=== PATIENT | female | born 1995 | race Caucasian/White ===

== ENCOUNTER 2018-02-10 05:02 | Day surgery (SDC) | payer BC ==
[~2018-02-10] VITALS: Ht 160 cm; Wt 61.7 kg
[2018-02-10] VITALS (9 sets, daily range): BP systolic 98–126; BP diastolic 62–83
[~2018-02-10 05:02] MED LIST: CELE-1 PO; DOCU-416 PO; NORG1TAB97 PO; OXYC-865 PO; ROSU20TA23 PO
[2018-02-10] MEDS ORDERED: ceFAZolin(*) 2GM/D5W 50ML 50 ML IVPB ONE (06:00)
[2018-02-10] MEDS ORDERED: LIDOCAINE/SOD BICARB 8.4% SYR ID ONE (06:00)
[2018-02-10] MEDS ORDERED: FAMOTIDINE 20 MG TAB PO ONE (06:00)
[2018-02-10] MEDS ORDERED: MIDAZOLAM 2 MG/2 ML VIAL IVP PRN (06:00)
[2018-02-10] MEDS ORDERED: NORMOSOL R SOLN(*) 1000 ML BAG 1,000 ML IV PRN (06:00)
[2018-02-10] MEDS ORDERED: ONDANSETRON 4 MG/2 ML VIAL ONE ×2 (06:01→11:05)
[2018-02-10] MEDS ORDERED: PROPOFOL EMUL(*) 10MG/ML 20 ML 20 ML ONE (06:01)
[2018-02-10] MEDS ORDERED: LIDOCAINE MPF 1% 5 ML VIAL ONE (06:01)
[2018-02-10] MEDS ORDERED: ROCURONIUM BROM 10 MG/ML 10 ML ONE (06:01)
[2018-02-10] MEDS ORDERED: METOCLOPRAMIDE 10 MG/2 ML SDV ONE (06:01)
[2018-02-10] MEDS ORDERED: DEXAMETHASONE SOD 4 MG/ML VIAL ONE (06:02)
[2018-02-10] MEDS ORDERED: fentaNYL CITR 100 MCG/2 ML AMP ONE ×2 (06:08→08:51)
[2018-02-10] MEDS ORDERED: SUGAMMADEX SOD 200 MG/2 ML SDV ONE (06:09)
[2018-02-10] MEDS ORDERED: ACETAMINOPHEN(*)1000 MG/100 ML 100 ML IVPB ONE (06:14)
[2018-02-10] MEDS ORDERED: BUPIVACAIN 0.25% INJ 50ML VIAL ONE (07:33)
[2018-02-10] MEDS ORDERED: KETOROLAC 30 MG/ML VIAL ONE (08:59)
[2018-02-10] MEDS ORDERED: LOR5/325 PO (09:23)
[2018-02-10] MEDS ORDERED: DIA5 PO (09:37)
[2018-02-10] MEDS ORDERED: DOCU240C84 PO (09:38)
--- NOTE | 2018-02-10 09:59 | RADIOLOGY IMAGING REPORT ---
[place] [facility] [place] NAME: Pauline Stewart : 1995 MR: [id number] V: [id number] EXAM DATE: ORDERING PHYSICIAN: ANEL CHIN TECHNOLOGIST: Location: [facility] [place] Patient: Pauline Stewart : 1995 Visit/Account:[id number] Date of Sevice: 02/10/2018 Exam type: LUMBAR SPINE 1 VIEW History: L4-5 MICRODISCECTOMY REVISION Comparison: None. Findings: Two portable cross table lateral prone views lumbar spine were submitted for interpretation. On the first image a metallic probe projects just above the posterior spinous process of L4. On the second image retractors and probe project over the posterior soft tissues at the level of L4-5. IMPRESSION: 1. As above Report Dictated By: Rowan Avila MD at 02/10/2018 9:54 AM Report E-Signed By: Rowan Avila MD at 02/10/2018 9:56 AM WSN:[email or web address]
[2018-02-10] MEDS ORDERED: APAP/HYDROCODONE 325/5 TAB PO ONE (10:10)
--- NOTE | 2018-02-10 11:16 | OPERATIVE REPORT 1 ---
EVENT DATE: February 10, 2018 SURGEON: Parag Jara MD ANESTHESIOLOGIST: Julio Graham MD ANESTHESIA: General endotracheal. SENIOR PRINCIPAL PROCESS ENGINEER: BRETT Amezcua PREOPERATIVE DIAGNOSIS Recurrent L4, L5 herniated nucleus pulposus with right L5 radiculopathy. POSTOPERATIVE DIAGNOSIS Recurrent L4, L5 herniated nucleus pulposus with right L5 radiculopathy. PROCEDURE PERFORMED Revision L4, L5 microdiscectomy. IV FLUIDS 800 cc. ESTIMATED BLOOD LOSS 30 cc. IMPLANTS None. SPECIMENS None. DRAINS None. COMPLICATIONS None. DISPOSITION Post anesthesia care unit. INDICATIONS FOR SURGERY Pauline Stewart is a 22-year-old female who back in 2013 or 2014 underwent microdiscectomy for a left sided L4, L5 herniated nucleus pulposus. She did very well postoperatively, but then this past November, had a recurrence of her radiating pain down the left posterior buttock, posterolateral thigh and lateral aspect of the calf. She had occasional numbness and tingling in the dorsum of the left foot and occasionally in the plantar surface as well. She had a little bit of subjective weakness, but denied any bowel or bladder dysfunction, fever, chills, or night sweats. Her physical examination was significant for positive straight leg raising maneuver to the left. She had slightly weak EHL on the left compared to the right at 4+ out of 5 compared to 5 out of 5. Sensation was subjectively diminished in the superficial peroneal nerve distribution only on the left. X-rays and an MRI were obtained and they showed no spondylolisthesis or scoliosis. She did have a recurrent disc herniation on the left side at L4, L5 compressing the nerve root. Secondary to ongoing symptoms and failure of physical therapy, medications, and epidural steroid injections, Pauline was offered and elected to undergo L4, L5 microdiscectomy. Prior to surgery, I explained in detail to the patient the possible risks of surgery. These risks include, bleeding, infection, damage to surrounding structures, persistent and/or worsening pain, need for further surgery, spinal fluid leak, meningitis, , blindness, sexual dysfunction, autonomic nervous system dysfunction, and other unforeseen medical and surgical complications. An understanding that in general, spinal surgery is more predictive at improving extremity discomfort than axial spine pain with stress. Increased risk of bleeding, infection, and spinal fluid leak was discussed secondary to the revision nature of the procedure. DESCRIPTION OF PROCEDURE On the day of surgery, the patient was met in the preoperative hold area and all questions were answered. Her operative site was identified and marked by myself. She was brought in good condition to the operating room and after succumbing to anesthesia, was positioned in the prone position on the Jarvis table. All bony protuberances and soft tissues were well padded in the standard fashion. Care was taken to maintain appropriate perfusion pressures during anesthesia. Preoperative antibiotics were administered according to the appropriate timing schedule. At the conclusion of the procedure, sponge and needle counts were correct times two. A final timeout was undertaken by members of the operating team to confirm correct patient, correct levels, and correct surgery. The skin was prepped and an 18 gauge spinal needle was placed on the spinous process of L4. A lateral radiograph was obtained to confirm correct spinal level. The patient was then prepped and draped in the standard sterile orthopedic fashion and a vertical incision was made over the midline at the intended level. Sharp dissection was carried out down to the fascia which was incised to the left side of the spinous processes. Soft tissues were elevated off the posterior element in a subperiosteal manner. Scar tissue was removed from the region overlying the inner laminar space with a pistol cash management officer pituitary rongeur. A second radiograph was obtained again, to confirm appropriate spinal level. A #3 Kerrison was used to remove some of the inferior aspect of the L4 lamina. I then used a Taylor curette to undermine the inferior insertion of the reconstitute of ligamentum flavum from the superior aspect of the L5 lamina. Once I had entered the canal, a Carole elevator was used to tease off any dural adhesions from surrounding bone and soft tissue. The shoulder of the nerve root was then mobilized and retracted slightly medially at which point a relatively large free fragment of disc herniation appeared. I used a pituitary rongeur to slowly tease that large fragment from beneath the dura and the shoulder of the nerve root. The [place] elevator was then used to further explore the canal, sweeping and searching for further disc fragments anterior to the nerve root shoulder and the dura. We pulled several more large and many smaller fragments from the canal thoroughly decompressing the shoulder, the nerve root and the dura. We then used a 20 cc syringe filled with saline and inserted a Doshi tip suction tip into the disc space to further debride any further loose disc fragments. None were found with that maneuver. Ultimately, at the conclusion of the decompression, the nerve was well decompressed both in the lateral recess, at the level of the disc space, and out the foramen. 2 mg of of Decadron was infused around the nerve root after irrigation with copious sterile saline solution. We then closed the wound in layers using interrupted sutures for the deep fascia, inverted interrupted sutures for the subcutaneous tissue, and then a running subcuticular skin stitch. Sponge and needle counts were correct times 2. POSTOPERATIVE CARE PLAN Pauline will remain in the postoperative care area until she meets discharge criteria. She will be discharged home today and will follow up with me in 2 weeks for a wound check and examination. MARY
== END 2018-02-10 09:30 | disposition home or self-care (01) ==
LOC: OR 05:02
PROVIDERS: ATTEND Orthopaedic Surgery
DX: M51.16 Intervertebral disc disorders with radiculopathy, lumbar region (principal)
CPT/HCPCS: 63042; 72020; 81025; 97116; 97161; J0131; J1100; J1885; J2001; J2405; J2704; J2765; J3010; J0690; J3490